=== PATIENT | male | born 1930 | race Caucasian/White ===

== ENCOUNTER → 2016-05-24 | Outpatient (CLI) | payer OTHER, BC | LOC: MMPC 11:11 | DX: R05 Cough (principal); J02.9 Acute pharyngitis, unspecified; R51 Headache; I10 Essential (primary) hypertension; G47.33 Obstructive sleep apnea (adult) (pediatric); N40.0 Benign prostatic hyperplasia without lower urinary tract symptoms; I49.8 Other specified cardiac arrhythmias; K40.90 Unilateral inguinal hernia, without obstruction or gangrene, not specified as recurrent | CPT/HCPCS: 99212; G0463 ==

== ENCOUNTER → 2016-07-11 | Outpatient (CLI) | payer OTHER, BC | LOC: MMPC 09:00 | DX: K21.9 Gastro-esophageal reflux disease without esophagitis (principal); G47.33 Obstructive sleep apnea (adult) (pediatric); I10 Essential (primary) hypertension; N40.0 Benign prostatic hyperplasia without lower urinary tract symptoms; K40.90 Unilateral inguinal hernia, without obstruction or gangrene, not specified as recurrent; I49.8 Other specified cardiac arrhythmias; L30.9 Dermatitis, unspecified | CPT/HCPCS: 99213; G0463 ==

== ENCOUNTER → 2016-11-08 | Outpatient (CLI) | payer OTHER, BC | LOC: MMPC 11:11 | DX: K21.9 Gastro-esophageal reflux disease without esophagitis (principal); G47.33 Obstructive sleep apnea (adult) (pediatric); I10 Essential (primary) hypertension; N40.0 Benign prostatic hyperplasia without lower urinary tract symptoms; K40.90 Unilateral inguinal hernia, without obstruction or gangrene, not specified as recurrent; I49.8 Other specified cardiac arrhythmias | CPT/HCPCS: 99213; G0463 ==

== ENCOUNTER 2017-07-19 14:33 | Observation (INO) ==
[2017-07-19] MEDS ORDERED: Sodium Chloride 0.9% 1,000 ML PRIMARY IV ONE (14:53)
[2017-07-19] MEDS ORDERED: ONDANSETRON 4 MG/2 ML VIAL IVP ONE (14:53)
[2017-07-19] MEDS ORDERED: MORPHINE SULFATE 2 MG/1 ML IVP ONE (14:53)
[2017-07-19] MEDS ORDERED: NORMAL SALINE 10 ML SYRINGE FLUSH IVP PRN ×3 (14:53→22:09)
[2017-07-19 14:59] LABS: BASOPHILS # (AUTO) 0.04 10*3/UL; BASOPHILS % (AUTO) 0.8 % (0-1); EOSINOPHILS # (AUTO) 0.07 10*3/UL; EOSINOPHILS % (AUTO) 1.3 % (0-8); Hemoglobin [HGB] 15.3 g/dL (14.0-18.0); LYMPHOCYTES # (AUTO) 1.55 10*3/uL; MEAN CORPUSCULAR HEMOGLOBIN 30.9 PG (27-31); MEAN CORPUSCULAR VOLUME 90.9 FL (80-90); MEAN PLATELET VOLUME 9.7 FL (7.4-12.2); MONOCYTES # (AUTO) 0.54 10*3/UL (0.3-0.8); MONOCYTES % (AUTO) 10.2 % (5-15); NEUTROPHILS # (AUTO) 3.07 10*3/UL; RED BLOOD COUNT 4.95 10^6/uL (4.70-6.10)
[2017-07-19 15:05] LABS: PLATELET MORPHOLOGY COMMENT NORMAL MORPHOLOGY (NORM); RBC MORPHOLOGY COMMENT NORMAL MORPHOLOGY (NORM); WBC MORPHOLOGY COMMENT NORMAL MORPHOLOGY (NORM)
[2017-07-19 15:12] LABS: BLOOD UREA NITROGEN 14 mg/dL (7-22); BUN/CREATININE RATIO 15.55 (6-20); LIPASE 32 IU/L (23-300); SERUM ALBUMIN 4.6 g/dL (3.5-4.8)
--- NOTE | 2017-07-19 16:47 | PDOC ---
Abdomen/Flank HPI - General Chief Complaint: Abdomen Pain Stated Complaint: RLQ ABDOMINAL PAIN Date Seen by Provider: 07/19/17 Time Seen by Provider: 15:00 Source: POSITIVE: Patient Exam Limitations: POSITIVE: No limitations Nurse's Notes Reviewed & Considered: Yes - History of Present Illness Initial Comments: The patient is an 87-year-old male who presents to the emergency department with pain in his right groin and lower abdomen. He states he has a known hernia in the right groin. He states that this morning he felt like he was constipated and did 2 enemas. After administration of enema the only result was passing of some gas and liquid. After administration of the enemas he developed significant increase in pain in the right groin associated with increased swelling in the area of the hernia. He states that normally when he lies down the hernia reduces however this was not the case this morning. He does have associated nausea and had an episode of emesis just prior to arrival here in the emergency department. He denies any fevers or chills, change in urinary symptoms or any other associated complaints. - Patient Home Medications Home Medications: Home Medications Aspirin [Aspir 81] 81 mg PO DAILY 07/10/15 Ibuprofen 1 tab PO TID PRN #60 tab 05/03/16 diltiazem CD 120 mg capsule,extended release 24 hr 120 mg PO QD #90 cap Terazosin HCl 10 mg PO BEDTIME 02/20/17 ergocalciferol (vitamin D2) 50,000 unit capsule 1 unit PO 2xw #16 unit 02/22/17 metoprolol tartrate 25 mg tablet 25 mg PO BID #180 tab 03/09/17 omeprazole 20 mg capsule,delayed release 20 mg PO QDAY #90 cap 03/09/17 diclofenac 1 % topical gel 2 g TOPICAL QID PRN #100 g 05/24/17 - Patient Allergies Allergies/Adverse Reactions: Allergies 3 Allergy/AdvReac Type Severity Reaction Status Date / Time No Known Allergies Allergy Verified 07/19/17 14:36 Past Medical History - heen HEENT History: Hard of Hearing, Deaf, Other (please comment) Additional HEENT History: WEARS HEARING AIDS AND GLASSES Cardiovascular History: Arrhythmia, Other (please comment) Additional Cardiovasular History: PT REPORTS "HIS HEART RACED ONCE BEFORE AND HE HAD TESTS DONE HERE TO MAKE SURE EVERYTHING WAS OKAY". 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 PT DENIES ANY OTHER CARDIAC HISTORY. Respiratory History: Snoring Gastrointestinal History: Other (please comment) Additional Gastrointestinal History: PT BELIEVES HIS RECURRENT CHEST/ STERNUM PAIN IS ESOPHAGEAL Genitourinary History: Other (please comment) Additional Genitourinary History: BPH ON FLOMAX Endocrine History: Denies History Musculoskeletal History: Arthritis, Back Pain Neurological History: Denies History Blood Disorders: Denies History Psychiatric History: Denies History Male Reproductive History: Denies History Cancer History: Denies History In Past Year Been Physically Harmed or Verbally Threatened: No History of MDRO: No Tobacco Use: Former Smoker Alcohol Use: Rarely In the Past 12 Months, Have Used or Abuse Any Substance: None Previous Surgical History: Yes Type / Date of Surgery: LEFT SHOULDER/ GALL BLADDER/ APPY/ HERNIA Anesthesia Reactions: No Malignant Hyperthermia: No Significant Family History: Other (please comment) Additional Family History: MOTHER, [place]. BROTHER HEART DISEASE Past Medical History Reviewed: Reviewed - No Changes ROS - Limitations ROS Limitations: No Limitations Constitution: DENIES: Chills, Fever Cardiovascular: REPORTS: Denies Cardiac Symptoms Respiratory: REPORTS: Denies Resp Symptoms Neurological: REPORTS: Denies Neuro Symptoms Abdominal/Flank Pain PE - General Appearance General Appearance: POSITIVE: Alert, Cooperative, No Acute Distress - HEENT HEENT: POSITIVE: Head Inspection Nml, Eyes Inspection Nml, Ears Inspection Nml, Pharynx Inspect. Nml - Neck Neck: POSITIVE: Normal Inspection. NEGATIVE: Lymphadenopathy - Respiratory Respiratory: POSITIVE: No Respiratory Distress, Breath Sounds Normal - Cardiovascular Cardiovascular: POSITIVE: Regular Rate and Rhythm, Heart Sounds Normal - Abdomen Additional Abdominal Details: His abdomen is soft, bowel sounds are present he does have some minimal tenderness in the right lower abdomen, he has a large right inguinal hernia which is firm, tender and not readily reducible on initial exam - Genital / Rectal Male Genital: POSITIVE: Other (Large right inguinal hernia which is tender, nonreducible) - Back Back: POSITIVE: Normal Inspection. NEGATIVE: CVA Tenderness (R), CVA Tenderness (L) - Skin Skin: POSITIVE: Intact, No Rash Abdomen Progress - Results Reviewed by me Xrays/CTs/US Reviewed by me: Yes Discussed with Radiologist: Yes Radiology Findings: CT scan of the abdomen and pelvis reveals a large right inguinal hernia containing a loop of sigmoid colon which also contains stool, no other acute findings per radiologist. CBC and BMP: 07/20/17 04:28 07/20/17 04:28 - Patient's Progress MDM / ED Course: The patient has a large right inguinal hernia which is currently not reducible on initial exam. I did discuss the patient with Dr. Yan and he recommended administering pain medication ice pack and then subsequent attempt at reduction. An IV was established and blood work was drawn. An icepack was applied for 15-20 minutes. The patient had received morphine and Zofran. I did attempt to reduce the inguinal hernia again however this was unsuccessful. CT scan of the abdomen and pelvis was ordered and reveals a large segment of the sigmoid colon herniated into the inguinal region on the right side, this portion of colon does contain stool. Dr. Yan was again subsequently consulted and he evaluated the patient here in the emergency department. He subsequently made arrangements to take the patient to the operating room for treatment. - Consult Counseled: POSITIVE: Patient, Family, RE: Lab Results, RE: Radiology Results, RE : DX Patient Care Time - Estimated PCT Patient Care Time (In Minutes): 30 Vital Signs - Recent Vital Signs Vital Signs: Vital Signs (Last 8 hours) Temp Pulse Resp BP Pulse Ox 07/19/17 14:57 98.1 F 85 16 157/92 94 - VS Reviewed Vital Signs Reviewed: Yes Discharge Clinical Impression: Incarcerated right inguinal hernia Discharge Disposition: Transferred to OR Condition: Fair
--- NOTE | 2017-07-19 16:53 | DI ---
CT ABDOMEN SCAN WITH IV CONTRAST, 07/19/2017 2:54 PM : Clinical History: Abdominal pain. Previous Exam: 04/15/2016. Scans are performed from the lower lung bases through the liver and kidneys with IV contrast. 75 ml o f Isovue 300 was injected IV. No oral or rectal contrast was ordered. The lung bases are clear. The liver is normal. The patient is status post cholecystectomy and the com mon bile duct measures 8-9 mm. There is no abnormality of the spleen, pancreas, and adrenal glands. B oth kidneys are normal in size, shape, position and contour. There is no hydronephrosis or hydrourete r. No renal or ureteral calculi are present. There are no abnormal retrocrural or periaortic nodes. N o ascites is present. READING: Normal CT abdomen scan. CT PELVIS SCAN WITH IV CONTRAST, 07/19/2017 2:54 PM: Clinical History: See above. Previous Exam: 04/15/2016. Scans are performed from just superior to the umbilicus to the symphysis pubis with IV contrast. This is the same bolus of contrast used for the CT scans of the abdomen. Scans through the lower abdomen and pelvis show no masses or abnormal fluid collections. There is no adenopathy. The appendix is not identified with certainty but there is no inflammatory mass either in the cecum or in the right lower quadrant. The small bowel, terminal ileum, and ileocecal valve are n ormal. The patient has a large right inguinal hernia through which the sigmoid colon has herniated al zuhair with mesenteric fat. There is no evidence of strangulation of this loop of bowel. There is marked enlargement of the prostate including the median lobe. READIN. There is a right-sided inguinal hernia with presence of a significant portion of the sigmoid colo n and mesenteric fat without evidence of strangulation or obstruction. 2. Marked prostatic enlargement.
[2017-07-19 16:54] LABS: BILIRUBIN,URINE NEGATIVE (NEG); CLARITY,URINE CLEAR (CLEAR); COLOR,URINE YELLOW (Y); GLUCOSE, URINE (UA) NEGATIVE (NEG); OCCULT BLOOD,URINE NEGATIVE (NEG); PROTEIN,URINE NEGATIVE (NEG); URINE SAMPLE TYPE CLEAN CATCH URINE; UROBILINOGEN,URINE 0.2 EU/dL (0.2)
[2017-07-19] MEDS ORDERED: Lactated Ringers 1,000 ML PRIMARY IV ONE ×3 (16:54→19:45)
[2017-07-19] MEDS ORDERED: Ertapenem Inj 1 GM in Sodium Chloride 0.9% 100 ML IV SCH (17:00)
[2017-07-19] MEDS ORDERED: SUFENTANIL 50 MCG/1 ML ONE (17:47)
[2017-07-19] MEDS ORDERED: MIDAZOLAM 5 MG/1 ML ONE (17:47)
[2017-07-19] MEDS ORDERED: PROPOFOL 10 MG/1 ML (200 MG/20 ML) VIAL IV ONE (17:48)
[2017-07-19] MEDS ORDERED: LIDOCAINE MPF 2% - 5 ML (20 MG/1 ML) ONE (17:48)
[2017-07-19] MEDS ORDERED: Sodium Chloride 0.9% vial 10 ML ONE (17:48)
[2017-07-19] MEDS ORDERED: BUPivacaine Liposome/PF (Exparel) Inj 20ml vial INFIL ONE (17:48)
[2017-07-19] MEDS ORDERED: ROCURONIUM 10 MG/1 ML - 5 ML VIAL IVP ONE ×2 (17:49→19:53)
--- NOTE | 2017-07-19 18:01 | CONSULT ---
Consult Note - Consult Consult Date: 07/19/17 Reason for Consult: PreOp Consulation : General Surgery Requesting Physician: Dr. Zuniga Primary Care Provider: Calos Stark MD - History of Present Illness History of Present Illness: Patient is an 87-year-old male who reports he awoke this morning and felt constipated. Had been constipated for a couple of days. He took a couple of enemas and it didn't work. He was straining at the stool and his chronic hernia became incarcerated. The patient has had a hernia for some time. About a year ago I recommended repair but he never did it. He usually can reduce his hernia but this morning he couldn't. He reports this happened at about 9:30. He has had several episodes of nausea and vomiting today. He presented to the emergency room. The emergency room doctor called me. We put some ice on the hernia and gave him some morphine. Neither the emergency room physician nor myself was able to reduce the hernia. A CT scan was done which showed his sigmoid colon, which is full of stool, is incarcerated in his right inguinal hernia. He will be taken to the operating room for reduction and repair of his hernia. The possibility of an exploratory laparotomy and colectomy with colostomy has been discussed with the patient and his family. On the CT was no evidence of bowel compromise. Patient does have a little difficulty voiding recently. It is not particularly painful unless someone presses on the hernia. Review of Systems - Gastrointestinal Gastrointestinal / Abdominal: REPORTS: Nausea, Vomiting, Constipation, Abdominal Pain (Right groin), See HPI Past Medical History Medical History: Obstructive sleep apnea. Known right inguinal hernia. Impingement syndrome of right shoulder. GERD. Hypertension. BPH. Paroxysmal supraventricular tachycardia. Transient atrial fibrillation/flutter. Surgical History: Shoulder surgery. Knee surgery. Inguinal hernia repair. Cholecystectomy. Appendectomy. Tobacco Use: Former Smoker In the Past 12 Months, Have Used or Abuse Any of the Following Substance: None Medication / Allergies Home Medications: Home Medications 3 Medication Instructions Recorded Confirmed Type Aspirin [Aspir 81] 81 mg PO DAILY 07/10/15 07/19/17 History Ibuprofen 1 tab PO TID PRN #60 tab 05/03/16 07/19/17 History diltiazem CD 120 mg 120 mg PO QD #90 cap 01/24/17 07/19/17 Rx capsule,extended release 24 hr Terazosin HCl 10 mg PO BEDTIME 02/20/17 07/19/17 History ergocalciferol (vitamin D2) 50,000 1 unit PO 2xw #16 unit 02/22/17 07/19/17 Rx unit capsule metoprolol tartrate 25 mg tablet 25 mg PO BID #180 tab 03/09/17 07/19/17 Rx omeprazole 20 mg capsule,delayed 20 mg PO QDAY #90 cap 03/09/17 07/19/17 Rx release diclofenac 1 % topical gel 2 g TOPICAL QID PRN #100 g 05/24/17 07/19/17 Rx Allergies/Adverse Reactions: Allergies 3 Allergy/AdvReac Type Severity Reaction Status Date / Time No Known Allergies Allergy Verified 07/19/17 14:36 Results - Labs CBC and BMP: 07/19/17 14:53 07/19/17 14:53 - Imaging Status: Image Reviewed by Me (And discussed with the radiologist.), Report Reviewed by Me Exam - Vitals Vital Signs: Vital Signs Temperature 98.1 F Temperature Source Temporal Artery Scan Pulse Rate [Pulse Oximeter 85 Bilateral Radial] Respiratory Rate 16 Blood Pressure [Left Arm] 157/92 Pulse Ox 94 Oxygen Delivery Method Room Air Height 5 ft 6 in Weight 192 lb - General General Appearance: No Acute Distress, Cooperative - Respiratory Respiratory Exam: POSITIVE: Clear to Auscultation - Bilaterally, Breathing Non Labored - Cardiovascular Cardiovascular Exam: POSITIVE: RRR, No Murmur - GI/Abdominal GI/Abdominal Exam: POSITIVE: Normal Bowel Sounds, Non Tender, Non Distended, Soft Additional GI/Abdominal Exam Details: Incarcerated and tender and nonreducible right inguinal hernia. - Rectal Rectal Exam: POSITIVE: Deferred - Neurological Neurological Exam: POSITIVE: Alert, Oriented x 3 - Psychiatric Psychiatric Exam: POSITIVE: Normal Affect, Normal Mood Assessment and Plan - Patient Problems (1) Incarcerated right inguinal hernia Current Visit: Yes Status: Acute Priority: High Onset Date: 07/19/17 Comment: The incarcerated contents are the stool-filled sigmoid colon. No evidence of bowel compromise. I am not able to reduce it. We will take patient to the operating room for reduction and repair of his right inguinal hernia. The possibility of an exploratory laparotomy with partial colectomy and colostomy has also been discussed. I think that is unlikely.The procedure has been discussed with the patient in complete yet simple terms including benefits, risks, and alternatives. All questions have been answered. Informed consent has been obtained. Code(s): K40.30 - Unilateral inguinal hernia, with obstruction, without gangrene , not specified as recurrent
[2017-07-19] MEDS: Lactated Ringers 1,000 ML PRIMARY IV SCH ×2 (18:15→22:59)
[2017-07-19] MEDS ORDERED: PHENYLEPHRINE 10,000 MCG/1 ML VIAL ONE (18:52)
[2017-07-19] MEDS ORDERED: ERTAPENEM 1 GM VIAL ONE (19:07)
[2017-07-19] MEDS ORDERED: Sodium Chloride 0.9% 0 ML IV ONE (19:07)
[2017-07-19] MEDS ORDERED: BUPivacaine Inj 0.5% PF (5mg/ml) 10ml vial ONE (19:40)
[2017-07-19] MEDS ORDERED: ePHEDrine Inj 50 MG/ML AMP ONE (20:05)
[2017-07-19] MEDS ORDERED: DEXAMETHASONE PF 10 MG/1 ML VIAL ONE (20:15)
[2017-07-19] MEDS ORDERED: GLYCOPYRROLATE 0.2 MG/1 ML VIAL ONE (20:31)
[2017-07-19] MEDS ORDERED: NEOSTIGMINE 1 MG/1 ML - 10 ML ONE (20:31)
--- NOTE | 2017-07-19 21:09 | GEN.OPNOTE ---
Operative Note Surgery Date: 07/19/17 Preoperative Diagnosis: Incarcerated right inguinal hernia. Postoperative Diagnosis: Incarcerated right inguinal hernia. Procedure: Reduction of incarcerated right inguinal hernia and repair in a tension-free fashion using Marlex mesh. Surgeon: Eduardo Yan MD Anesthesia Provider: Nilam Martinez CRNA Anesthesia Type: General Estimated Blood Loss (mL): 10 Fluids: 2600 mL of crystalloid. 1 g of IV Invanz at the start of the procedure. Pathology: No specimens. Indications: Incarcerated right inguinal hernia containing stool-filled sigmoid colon. Findings: Very large indirect right inguinal hernia, incarcerated. Complications: None. Operative Summary: Patient was taken to the operating room and placed on the operating table in the supine position. Following induction of adequate general anesthetic the right groin was prepped and draped in a sterile fashion. A surgical timeout was done. An incision was made over the groin and carried down through the subcutaneous tissue and Val's fascia to the external oblique. The external oblique was split along the course of its fibers laterally. The medial portion was completely obliterated from the large hernia. The external oblique was retracted. The cord was mobilized at the pubic tubercle and encircled with a [place] drain. The dissection was carried back to the internal ring. Nerves were identified and sacrificed. The floor was loose at the medial portion of the internal ring.. The indirect sac was dissected free from the cord structures. At this point in the procedure the contents spontaneously reduced. The hernia sac was quite large and quite thickened. I opted not to open it. The CT scan showed perfused bowel. The dissection was carried right down to the inferior epigastric vessels. All contents were reduced. The sac was inverted through the internal ring.. Make the floor was repaired with 2-0 Vicryl medial to the internal ring. A piece of Marlex mesh was cut to fit the floor. It was secured superiorly and medially from the pubic tubercle with 2-0 Prolene suture. A running continuous suture was used to anchor the mesh around the pubic tubercle and along the shelving portion of Poupart's ligament to well past the internal ring. The mesh was split. The tails were wrapped around the cord at the internal ring. The upper tail was secured to the shelving portion of Poupart ligament with 2-0 Prolene. Laterally the tails were tucked under the external oblique. The upper edge of the mesh was secured to the internal oblique fascia with 2-0 Vicryl sutures. The defect in the mesh where the cord passed through barely allowed the tip of my finger. Having completed the repair the cord structures were returned to a relative anatomic position. The wound was irrigated. Hemostasis was assured. The subcutaneous tissue was infiltrated with Exparel. The external oblique was closed with 2-0 Vicryl as much as possible. The Val 's fascia was closed with 2-0 Vicryl.. The skin was closed with running subcuticular 4-0 Prolene followed by Mastisol, Steri-Strips, and an appropriate dressing. The patient tolerated the entire procedure well without complication. He was taken to the recovery room in stable condition. All counts were correct. Patient Problems - Patient Problem List (1) Incarcerated right inguinal hernia Current Visit: Yes Status: Acute Onset Date: 07/19/17 Priority: High Code(s): K40.30 - Unilateral inguinal hernia, with obstruction, without gangrene , not specified as recurrent Category: Medical Procedure Codes - Surgical Procedures Primary Surgical Procedure: 07236 : Inguinal Hernia Strangulated, 5 yrs+
--- NOTE | 2017-07-19 21:13 | CRNA.PROGR ---
Anesthesia Time - - Start date: 07/19/17 End date: 07/19/17 - Procedure/Recovery Time Anesthesia : Time In: 18:41 Anesthesia : Time Out: 20:55 Anesthesia : Total Time: 134 - Total Anesthesia Time Total Anesthesia Time (minutes): 134 - Other Weight: 87.09 kg Height: 5 ft 6 in Body Mass Index (BMI): 30.9 Physical Status: P3 (Age 87, H/O Afib,) Anesthesia Type: General Anesthesia : ET
--- NOTE | 2017-07-19 21:13 | CRNA.PROGR ---
Post Anesthesia Phase II - Post Anesthesia Phase II Patient Stable and Discharged To: Med/Surg Care Assumed By Surgeon: Eduardo Yan MD Temperature: 96.8 F Pulse Rate: 80 Respiratory Rate: 10 Blood Pressure: 130/79 Pulse Ox: 94 Total Chip Score at Discharge: 9 Post Anesthesia Discharge Criteria Met: Yes
--- NOTE | 2017-07-19 21:13 | CRNA.PROGR ---
Anesthesia Recovery Phase I - Post Anesthesia Evaluation Patient's Condition on Arrival in Phase I: Stable Patient's Condition on Arrival in Phase II: Stable Pain Level: 2
[2017-07-19] MEDS ORDERED: ONDANSETRON 4 MG/2 ML VIAL IVP PRN (22:09)
[2017-07-19] MEDS ORDERED: MORPHINE SULFATE 2 MG/1 ML ONE (22:42)
[2017-07-19] MEDS: MORPHINE SULFATE 2 MG/1 ML IVP PRN (22:45)
[2017-07-19] MEDS ORDERED: Terazosin Cap 5 MG CAP PO ONE (23:06)
[2017-07-19] MEDS ORDERED: Metoprolol TARTRATE Tab 25 MG TAB PO ONE (23:06)
[2017-07-19] MEDS: Terazosin Cap 5 MG CAP PO SCH (23:09)
[2017-07-19] MEDS: Metoprolol TARTRATE Tab 50 MG TAB PO SCH (23:09)
[2017-07-20] MEDS: Lactated Ringers 1,000 ML PRIMARY IV SCH ×2 (01:46→18:27)
[2017-07-20] MEDS: HYDROcodone-APAP 5 MG -325 MG TABLET PO PRN ×3 (02:21→20:35)
[2017-07-20 04:38] LABS: BASOPHILS # (AUTO) 0.01 10*3/UL; BASOPHILS % (AUTO) 0.1 % (0-1); EOSINOPHILS # (AUTO) 0 10*3/UL; EOSINOPHILS % (AUTO) 0 % (0-8); Hematocrit [HCT] 42.7 % (42.0-52.0); Hemoglobin [HGB] 14.7 g/dL (14.0-18.0); LYMPHOCYTES # (AUTO) 0.51 10*3/uL; MEAN CORPUSCULAR HEMOGLOBIN 31.2 PG (27-31); MEAN CORPUSCULAR HGB CONC 34.4 g/dL (33-37); MEAN CORPUSCULAR VOLUME 90.7 FL (80-90); MEAN PLATELET VOLUME 9.8 FL (7.4-12.2); MONOCYTES % (AUTO) 2.7 % (5-15); NEUTROPHILS # (AUTO) 10.31 10*3/UL; NEUTROPHILS % (AUTO) 92.5 % (50-80); RED BLOOD COUNT 4.71 10^6/uL (4.70-6.10)
[2017-07-20 04:43] LABS: PLATELET MORPHOLOGY COMMENT NORMAL MORPHOLOGY (NORM); RBC MORPHOLOGY COMMENT NORMAL MORPHOLOGY (NORM); WBC MORPHOLOGY COMMENT NORMAL MORPHOLOGY (NORM)
[2017-07-20 04:47] LABS: BLOOD UREA NITROGEN 12 mg/dL (7-22); BUN/CREATININE RATIO 17.14 (6-20)
[2017-07-20] MEDS: MORPHINE SULFATE 2 MG/1 ML IVP PRN (05:33)
[2017-07-20] MEDS: PANTOPRAZOLE 40 MG TABLET PO SCH (06:55)
[2017-07-20] MEDS: Metoprolol TARTRATE Tab 50 MG TAB PO SCH ×2 (08:35→21:26)
[2017-07-20] MEDS: DILTIAZEM HCL CD 120 MG CAP PO SCH (08:35)
--- NOTE | 2017-07-20 11:36 | PDOC(PROG) ---
Subjective Post Op Day: 1 Pain Management: PO Hull Catheter: No Flatus: No Diet: Regular Ambulating: Yes Date and Time of Service: 07/20/2017 11:20 AM. Interval History: Overall doing well. He could not void overnight. Was catheterized for 650 mL of urine at about 6 AM. He has voided once since the catheter was removed.. He reports it burned. No flatus or bowel movement. Has ambulated. Tolerating a regular diet. Denies abdominal pain. He is a little sore at the operative site. Objective : Data - Labs CBC and BMP: 07/20/17 04:28 07/20/17 04:28 - Vital Signs Vital Signs and I&O: Vital Signs - Last Taken Temperature 98.2 F 07/20/17 06:58 Pulse Rate 92 07/20/17 06:58 Respiratory Rate 18 07/20/17 06:58 Blood Pressure 138/70 07/20/17 06:58 Pulse Ox 90 07/20/17 06:58 Intake and Output (24hr x 4 totals) 07/18/17 07/19/17 07/20/17 07/21/17 05:59 05:59 05:59 05:59 Intake Total 671 / 3271 240 / 240 Output Total 650 / 650 Balance 671 / 3261 -410 / -410 Objective : Exam - General General Appearance: No Acute Distress, Cooperative - Respiratory Respiratory Exam: Clear to Auscultation - Bilaterally, Breathing Non Labored - Cardiovascular Cardiovascular Exam: RRR, No Murmur - GI/Abdominal GI/Abdominal Exam: Normal Bowel Sounds, Non Tender, Non Distended, Soft Additional GI/Abdominal Exam Details: The dressing is clean, dry, and intact. There is some bruising in the scrotum and at the base of the penis. No significant swelling. Groin is soft. - Neurological Neurological Exam: Alert, Oriented x 3 - Psychiatric Psychiatric Exam: Normal Affect, Normal Mood Assessment and Plan - Patient Problems (1) Incarcerated right inguinal hernia Current Visit: Yes Status: Acute Priority: High Onset Date: 07/19/17 Comment: Status post surgical repair. Doing very well. The only issue is voiding. If he voids again will plan discharge home later today. Code(s): K40.30 - Unilateral inguinal hernia, with obstruction, without gangrene , not specified as recurrent
--- NOTE | 2017-07-20 11:39 | DCSUMMARY ---
Discharge Summary Admit Date: 07/19/17 Discharge Date: 07/20/17 Admitting Diagnosis: incarcerated right inguinal hernia. Discharge Diagnosis: Incarcerated right inguinal hernia, status post surgical repair Primary Surgery and Date: Reduction and repair of right inguinal hernia-2017 Hospital Course: Patient underwent herniorrhaphy for an incarcerated right inguinal hernia. His sigmoid colon was incarcerated in the right inguinal hernia. He is done well postop. The only issue is bleeding. He was straight cathetered about 6 AM for 650 mL. His voided a small amount since. He reports it burned. Otherwise he is quite stable. We will watch him for a few more hours. If he voids. He will be discharged home today. If not the staff will call the surgeon iron pellet tester, Dr. Bailey. Exam - Vitals Vital Signs: Vital Signs Temperature 98.2 F Temperature Source Temporal Artery Scan Pulse Rate [Pulse Oximeter 92 Bilateral Radial] Pulse Rate 80 Respiratory Rate 18 Blood Pressure [Right Arm] 138/70 Blood Pressure [Left Arm] 109/83 Blood Pressure 130/79 Pulse Ox 90 Oxygen Flow Rate 2 Oxygen Delivery Method Nasal Cannula Height 5 ft 6 in Weight 188 lb - General General Appearance: No Acute Distress, Cooperative - Respiratory Respiratory Exam: POSITIVE: Clear to Auscultation - Bilaterally, Breathing Non Labored - Cardiovascular Cardiovascular Exam: POSITIVE: RRR, No Murmur - GI/Abdominal GI/Abdominal Exam: POSITIVE: Normal Bowel Sounds, Non Tender, Non Distended, Soft Additional GI/Abdominal Exam Details: Some bruising in the groin. No significant swelling. Dressing is clean, dry and intact. Data Peritnent Studies: CT scan Procedures: Right inguinal herniorrhaphy Patient Problems - Patient Problem List (1) Incarcerated right inguinal hernia Current Visit: Yes Status: Acute Onset Date: 07/19/17 Priority: High Comment: Status post repair. Home later today after he voids. Discussed with the patient. Code(s): K40.30 - Unilateral inguinal hernia, with obstruction, without gangrene, not specified as recurrent Category: Medical
[2017-07-20] MEDS: DOCUSATE 100 MG CAPSULE PO SCH ×2 (12:33→20:35)
[2017-07-20] MEDS ORDERED: LIDOCAINE HCL 2 % 10 ML JELLY URO-JECT TOPICAL PRN (16:42)
[2017-07-20] MEDS: Terazosin Cap 5 MG CAP PO SCH (20:35)
[2017-07-20] MEDS ORDERED: TAMSULOSIN 0.4 MG CAPSULE PO SCH (21:00)
[2017-07-21] MEDS: HYDROcodone-APAP 5 MG -325 MG TABLET PO PRN ×3 (02:26→12:36)
[2017-07-21 04:38] VITALS: O2SAT 93
[2017-07-21] MEDS: PANTOPRAZOLE 40 MG TABLET PO SCH (07:37)
[2017-07-21 08:47] VITALS: BP 116/59; RESP 20; TEMP 97.4
[2017-07-21] MEDS: DOCUSATE 100 MG CAPSULE PO SCH (09:31)
[2017-07-21] MEDS: DILTIAZEM HCL CD 120 MG CAP PO SCH (09:31)
[2017-07-21] MEDS: Metoprolol TARTRATE Tab 50 MG TAB PO SCH (09:31)
--- NOTE | 2017-07-21 10:45 | DCSUMMARY ---
Discharge Summary Admit Date: 08/09/17 Discharge Date: 07/21/17 Admitting Diagnosis: incarcerated right inguinal hernia Discharge Diagnosis: Incarcerated right inguinal hernia. Urinary retention Primary Surgery and Date: Repair of incarcerated right inguinal hernia Hospital Course: Patient came in and underwent an repair of right incarcerated hernia. Patient had some urinary retention postoperatively. Needed a Hull catheter placed. He was started on Flomax to aid in getting urinary flow. Will try to remove the catheter see if he can urinate. Patient is unable to urinate on his own catheter replaced and then discharged Exam - Vitals Vital Signs: Vital Signs Temperature 97.4 F Temperature Source Temporal Artery Scan Pulse Rate [Pulse Oximeter 57 Bilateral Radial] Pulse Rate 80 Respiratory Rate 20 Blood Pressure [Right Arm] 116/59 Blood Pressure [Left Arm] 109/83 Blood Pressure 130/79 Pulse Ox 93 Oxygen Flow Rate 2 Oxygen Delivery Method Room Air Height 5 ft 6 in Weight 198 lb 12.8 oz - General General Appearance: No Acute Distress, Cooperative - GI/Abdominal GI/Abdominal Exam: POSITIVE: Non Tender, Non Distended Additional GI/Abdominal Exam Details: Dressings are dry. Patient Problems - Patient Problem List (1) Incarcerated right inguinal hernia Current Visit: Yes Status: Acute Onset Date: 07/19/17 Priority: High Comment: Status post repair. Home later today after he voids. Discussed with the patient. Code(s): K40.30 - Unilateral inguinal hernia, with obstruction, without gangrene, not specified as recurrent Category: Medical (2) Urinary retention Current Visit: Yes Status: Acute Code(s): R33.9 - Retention of urine, unspecified Category: Medical
== END 2017-07-21 12:58 | disposition home or self-care (01) ==
LOC: ER 14:33 → OPS 16:54 → OR 16:54 → MED/SURG 21:59
PROVIDERS: ADMIT Surgery; ATTEND Surgery

== ENCOUNTER 2018-09-05 17:51 | Inpatient (IN) ==
--- NOTE | 2018-09-05 18:10 | EKG ---
[address] [address] Measurements Intervals [place] Rate: 147 P: LA: 0 QRS: -37 QRSD: 84 T: 262 QT: 199 QTc: 283 Interpretive Statements ATRIAL FIBRILLATION WITH RAPID VENTRICULAR RESPONSE MARKED LEFT AXIS DEVIATION [QRS AXIS < -30] LOW QRS VOLTAGE IN PRECORDIAL LEADS [QRS DEFLECTION < 1.0 mV IN CHEST LEADS] PATTERN CONSISTENT WITH PULMONARY DISEASE ST DEVIATION AND MODERATE T-WAVE ABNORMALITY, CONSIDER INFERIOR ISCHEMIA [-0.1+ mV T WAVE IN II/aVF] WARNING: DATA QUALITY MAY AFFECT INTERPRETATION Compared to ECG 02/20/2017 08:56:48 Low QRS voltage now present T-wave abnormality now present Possible ischemia now present Sinus rhythm no longer present First degree AV block no longer present Electronically Signed On 09-06-18 08:44:58 MDT by Orlando Anderson MD [id number]
[2018-09-05] MEDS ORDERED: ASPIRIN 81 MG (BABY) CHEWABLE TABLET PO ONE (18:12)
[2018-09-05] MEDS ORDERED: DILTIAZEM 5 MG/ML - 5 ML IV ONE (18:13)
[2018-09-05 18:20] LABS: Hematocrit [HCT] 46.1 % (42.0-52.0); Hemoglobin [HGB] 15.8 g/dL (14.0-18.0); MEAN CORPUSCULAR HEMOGLOBIN 31.3 PG (27-31); MEAN CORPUSCULAR HGB CONC 34.3 g/dL (33-37); MEAN CORPUSCULAR VOLUME 91.5 FL (80-90); MEAN PLATELET VOLUME 9.9 FL (7.4-12.2); RED BLOOD COUNT 5.04 10^6/uL (4.70-6.10)
[2018-09-05 18:25] LABS: BLOOD UREA NITROGEN 17 mg/dL (7-22); BUN/CREATININE RATIO 18.88 (6-20); LIPASE 42 IU/L (23-300); SERUM ALBUMIN 4.5 g/dL (3.5-4.8)
[2018-09-05 18:40] LABS: PLATELET MORPHOLOGY COMMENT NORMAL MORPHOLOGY (NORM); RBC MORPHOLOGY COMMENT NORMAL MORPHOLOGY (NORM); WBC MORPHOLOGY COMMENT NORMAL MORPHOLOGY (NORM)
[2018-09-05 18:41] LABS: BAND NEUTROPHILS % 0 % (0-10); BASOPHILS % (MANUAL) 2 % (0-1); EOSINOPHILS % (MANUAL) 0 % (0-8); METAMYELOCYTES % 0 %; MONOCYTES % (MANUAL) 7 % (0-12); MYELOCYTES % 0 %; NEUTROPHILS % (MANUAL) 52 % (50-80); PROMYELOCYTES % 0 %
--- NOTE | 2018-09-05 19:26 | EKG ---
[address] [place] [address] Measurements Intervals [place] Rate: 67 P: 30 [place]: 255 QRS: -45 QRSD: 104 T: 0 QT: 394 QTc: 410 Interpretive Statements SINUS RHYTHM WITH FIRST DEGREE AV BLOCK LOW QRS VOLTAGE IN PRECORDIAL LEADS [QRS DEFLECTION < 1.0 mV IN CHEST LEADS] PATTERN CONSISTENT WITH PULMONARY DISEASE LEFT ANTERIOR FASCICULAR BLOCK [QRS AXIS <= -45, QR IN I, RS IN II] Compared to ECG 09/05/2018 18:00:45 First degree AV block now present Left anterior fascicular block now present Atrial fibrillation no longer present Left-axis deviation no longer present T-wave abnormality no longer present Possible ischemia no longer present Electronically Signed On 09-06-18 08:46:09 MDT by Orlando Anderson MD [id number]
--- NOTE | 2018-09-05 19:26 | DI ---
AP CHEST X-RAY, 09/05/2018 6:12 PM : Clinical History: Chest pain. Previous Exam: 07/10/2015. Soft Tissues: No acute soft tissue abnormality. Bones: Normal. Heart: Normal heart. Lungs: No infiltrates. Effusion(s): None. Mediastinum: The right hilum is difficult to assess, but it does appear prominent. When the patient h as recovered from his acute medical situation, a followup PA and lateral chest x-ray is recommended f or assessment of the right hilum. Nodules: No pulmonary nodules. Readin. No acute infiltrate or effusion. 2. The right hilum does appear prominent but the overlying aortic silhouette obscures much of the de tail. When the patient has recovered from this acute medical complaint, then a followup PA and latera l chest x-ray is recommended to reassess the right hilum.
[2018-09-05] MEDS ORDERED: Diltiazem Drip 125 MG in Sodium Chloride 0.9% 100 ML IV ONE (21:00)
--- NOTE | 2018-09-05 21:05 | PDOC ---
HPI - History of Present Illness History of Present Illness: Patient now was here for blood pressure check respiratory therapist evaluated him and found him to be with a heart rate of 160 patient was sent to the ER for A. fib RVR was given IV Cardizem patient converted for now and will be admitted to the ICU on Cardizem drip and by mouth Cardizem. Troponin remains negative. Past Medical History Medical History: Obstructive sleep apnea. Known right inguinal hernia. Impinge ment syndrome of right shoulder. GERD. Hypertension. BPH. Paroxysmal supraventricular tachycardia. Transient atrial fibrillation/flutter. Surgical History: Shoulder surgery. Knee surgery. Inguinal hernia repair. Cholecystectomy. Appendectomy. Tobacco Use: Former Smoker In the Past 12 Months, Have Used or Abuse Any of the Following Substance: None Medication / Allergies Home Medications: Home Medications Medication Instructions Recorded Confirmed Type Aspirin [Aspir 81] 81 mg PO DAILY 07/10/15 09/05/18 History Ibuprofen 1 tab PO TID PRN #60 tab 05/03/16 09/05/18 History diltiazem CD 120 mg 120 mg PO QD #90 cap 01/16/18 09/05/18 Rx capsule,extended release 24 hr omeprazole 20 mg capsule,delayed 20 mg PO QDAY #90 cap 03/28/18 09/05/18 Rx release finasteride 5 mg tablet 5 mg PO QDAY #90 tab 04/05/18 09/05/18 Rx metoprolol tartrate 25 mg tablet 25 mg PO BID #180 tab 04/17/18 09/05/18 Rx tamsulosin 0.4 mg capsule 0.4 mg PO QDAY #90 cap 04/18/18 09/05/18 Rx erythromycin with ethanol 2 % 1 applic TOPICAL BID PRN #60 g 05/31/18 09/05/18 Rx topical gel triamcinolone acetonide 0.1 % 1 applic TOPICAL BID PRN #30 g 05/31/18 09/05/18 Rx topical cream diclofenac 1 % topical gel 4 g TOPICAL QID PRN #300 g 08/05/18 09/05/18 Rx Allergies/Adverse Reactions: Allergies Allergy/AdvReac Type Severity Reaction Status Date / Time No Known Allergies Allergy Verified 09/05/18 18:32 Exam - Vitals Vital Signs: Vital Signs Temperature 97.1 F Temperature Source Temporal Artery Scan Pulse Rate [Pulse Oximeter 164 Right] Respiratory Rate 20 Blood Pressure [Right Arm] 159/143 Pulse Ox 99 Oxygen Delivery Method Room Air Height 5 ft 6 in Weight 180 lb - General General Appearance: No Acute Distress, Cooperative - Respiratory Respiratory Exam: POSITIVE: Clear to Auscultation - Bilaterally, Breathing Non Labored, Normal To Percussion, Normal to Percussion and Palpation - Cardiovascular Cardiovascular Exam: POSITIVE: Irregular Rhythm - GI/Abdominal GI/Abdominal Exam: POSITIVE: Normal Bowel Sounds, Non Tender, Non Distended, Soft, No Masses, No Hepatomegaly, No Splenomegaly, No Organomegaly - Extremities Extremities Exam: POSITIVE: No Clubbing Present, No Edema Present, No Cyanosis Present Results - Labs CBC and BMP: 09/05/18 18:12 09/05/18 17:58 Assessment and Plan - Patient Problems (1) Atrial fibrillation with RVR Current Visit: Yes Status: Acute Comment: Patient will be admitted to the ICU with Cardizem drip will also given by mouth Cardizem hopefully will stay converted also start on liquids 5 mg by mouth twice a day for stroke prophylaxis IV fluids Code(s): I48.91 - Unspecified atrial fibrillation (2) BPH (benign prostatic hyperplasia) Current Visit: No Status: Acute Onset Date: 02/24/14 Comment: Continue finasteride Code(s): N40.0 - Benign prostatic hyperplasia without lower urinary tract symptoms Qualifiers: (3) Benign essential hypertension Current Visit: No Status: Acute Onset Date: 04/03/13 Comment: Stable Code(s): I10 - Essential (primary) hypertension (4) Obstructive sleep apnea syndrome Current Visit: No Status: Acute Onset Date: 04/03/13 Code(s): G47.33 - Obs tructive sleep apnea (adult) (pediatric)
--- NOTE | 2018-09-05 21:35 | PDOC ---
General Adult HPI - General Chief Complaint: Palpitations Stated Complaint: elevated heart rate Date Seen by Provider: 09/05/18 Time Seen by Provider: 18:00 Source: POSITIVE: Patient Exam Limitations: POSITIVE: No limitations Nurse's Notes Reviewed & Considered: Yes - History of Present Illness Initial Comment: The patient is a 88-year-old male. Patient presents to the emergency room because this afternoon he had episodes of "feeling dizzy "and he states that his "heart doesn't seem". He states he has a history of "a lot of gas and heartburn" and he states he does take sodium bicarbonate for this problem. He states that his "heartburn" has become more frequent in the 2 or 3 days. He describes the pain as beginning in the epigastric and subxiphoid area and radiating up towards his throat. He states that these episodes last from 30 minutes to 2 hours and he has had 2 episodes today. His last episode occurred just prior to coming to the emergency room and states it lasted about 30 minutes. Patient states that he has a history of atrial fibrillation for which he takes diltiazem CD, 120 mg daily and metoprolol, 25 mg twice daily. He is not on any anticoagulants. No syncope. No dyspnea. Have you received a tetanus shot in the past 10 years?: Yes Body Location Affected: REPORTS: Chest Timing: REPORTS: Intermittent Duration: >24 hours Severity: Moderate Quality: REPORTS: "Pain" ("Heartburn" beginning in epigastric and subxiphoid area and radiating superiorly) Context: REPORTS: None Modifying Factors: improves with: Nothing Associated Symptoms: "Feeling dizzy "and rapid heart rate. Similar Symptoms Previously: Yes Recent Care Received: REPORTS: Denies Any Prior Injuries Related to Current Complaint?: No - Patient Home Medications Home Medications: Home Medications Aspirin [Aspir 81] 81 mg PO DAILY 07/10/15 Ibuprofen 1 tab PO TID PRN #60 tab 05/03/16 diltiazem CD 120 mg capsule,extended release 24 hr 120 mg PO QD #90 cap 01/16/18 omeprazole 20 mg capsule,delayed release 20 mg PO QDAY #90 cap 03/28/18 finasteride 5 mg tablet 5 mg PO QDAY #90 tab 04/05/18 metoprolol tartrate 25 mg tablet 25 mg PO BID #180 tab 04/17/18 tamsulosin 0.4 mg capsule 0.4 mg PO QDAY #90 cap 04/18/18 erythromycin with ethanol 2 % topical gel 1 applic TOPICAL BID PRN #60 g 05/31/18 triamcinolone acetonide 0.1 % topical cream 1 applic TOPICAL BID PRN #30 g 05/31/18 diclofenac 1 % topical gel 4 g TOPICAL QID PRN #300 g 08/05/18 - Patient Allergies Allergies/Adverse Reactions: Allergies Allergy/AdvReac Type Severity Reaction Status Date / Time No Known Allergies Allergy Verified 09/05/18 18:32 Past Medical History - heen HEENT History: Hard of Hearing, Deaf, Other (please comment) Additional HEENT History: WEARS HEARING AIDS AND GLASSES Cardiovascular History: Arrhythmia, Other (please comment) Additional Cardiovasular History: PT REPORTS "HIS HEART RACED ONCE BEFORE AND HE HAD TESTS DONE HERE TO MAKE SURE EVERYTHING WAS OKAY". 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 PT DENIES ANY OTHER CARDIAC HISTORY. Respiratory History: Snoring Gastrointestinal History: Other (please comment) Additional Gastrointestinal History: PT BELIEVES HIS RECURRENT CHEST/ STERNUM PAIN IS ESOPHAGEAL Genitourinary History: Other (please comment) Additional Genitourinary History: BPH ON FLOMAX Endocrine History: Denies History Musculoskeletal History: Arthritis, Back Pain Prosthesis or Implant: No Neurological History: Denies History Blood Disorders: Denies History Psychiatric History: Denies History History of Sexually Transmitted Diseases: No Male Reproductive History: BPH Cancer History: Denies History In Past Year Been Physically Harmed or Verbally Threatened: No History of MDRO: No History of Other Communicable Diseases: No Tobacco Use: Former Smoker Alcohol Use: Rarely In the Past 12 Months, Have Used or Abuse Any Substance: None Previous Surgical History: Yes Type / Date of Surgery: LEFT SHOULDER/ GALL BLADDER/ APPY/ HERNIA Anesthesia Reactions: No Malignant Hyperthermia: No Significant Family History: Other (please comment) Additional Family History: MOTHER, [place]. BROTHER HEART DISEASE Past Medical History Reviewed: Reviewed - No Changes ROS - Limitations ROS Limitations: No Limitations Constitution: REPORTS: Denies Symptoms Cardiovascular: REPORTS: Chest Pain, Heart Racing, Heart Palpitations Respiratory: REPORTS: Denies Resp Symptoms Neurological: REPORTS: Denies Neuro Symptoms Gastrointestinal: REPORTS: Other ("Heartburn and gas") Endocrine: REPORTS: Denies Symptoms Musculoskeletal: REPORTS: Denies MS Symptoms Genitourinary: REPORTS: Denies Symptoms Eyes: REPORTS: Denies Symptoms ENT: REPORTS: Denies Symptoms Skin: REPORTS: Denies Skin Symptoms Lympathic: REPORTS: Denies Lympathic Symptoms Immunologic: POSITIVE: Denies Symptoms Psychiatric: POSITIVE: Denies Psych Symptoms General Adult Exam - General Appearance General Appearance: POSITIVE: Alert, Cooperative, No Acute Distress, No Evidence of Trauma - HEENT HEENT: POSITIVE: Head Inspection Nml, Eyes Inspection Nml, Ears Inspection Nml, Nose Inspection Nml, Oral/Dental Inspect. Nml, Pharynx Inspect. Nml, PERRL, EOMI - Pupils Pupil Size: 3 mm: Bilateral (PERRLA) - Neck Neck: POSITIVE: Normal Inspection, Thyroid Normal - Respiratory Respiratory: POSITIVE: No Respiratory Distress, Breath Sounds Normal, Chest Non- Tender - Cardiovascular Cardiovascular: POSITIVE: No Murmur, No Gallop, PMI Normal, Irregularly Irreg. Rhythm, Tachycardia. NEGATIVE: Regular Rate & Rhythm (Atrial fibrillation with a rapid ventricular response of around 147 265), Decreased Pulse, No Pulse, Occasional Extrasystoles, Frequent Extrasystoles, PMI Displaced Laterally, JVD Present, Murmur, S3 Gallop, S4 Gallop, Bradycardia, Friction Rub Peripheral Pulses: Radial (R): 2+, Radial (L): 2+ - Abdomen Abdomen: Soft: (All Quadrants), Normal Bowel Sounds: (All Quadrants), Denies Tenderness: (All Quadrants), No Splenomegaly: (All Quadrants), No Hepatomegaly: (All Quadrants), No Guarding: (All Quadrants), No Rebound: (All Quadrants), No Palpable Pulse: (All Quadrants), No Palpabale Mass: (All Quadrants), No Distention: (All Quadrants), No Rigidity: (All Quadrants) - Back Back: POSITIVE: Normal Inspection - Skin Skin: POSITIVE: Normal Color, Warm, Dry, No Rash - Extremities Extremity: Non-Tender: (All Extremities), Normal ROM: (All Extremities), Normal Inspection: (All Extremities) - Neurological / Psychological Neurological: POSITIVE: 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, 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 As Tested, Motor Normal, Sensation Normal, 5, 6 Images - Complete Complete: 1 - Area of described discomfort General Adult Progress - Results Reviewed by me Xrays/CTs/US Reviewed by me: Yes Discussed with Radiologist: Yes Radiology Findings: Chest x-ray read as normal by radiologist Lab Results Reviewed by Me: Yes Lab Results:: Laboratory Results 09/05/18 09/05/18 09/05/18 17:58 17:58 17:58 WBC RBC Hgb Hct MCV MCH MCHC RDW Std Deviation RDW Coeff of Alfredo Plt Count MPV Neutrophils % (Manual) Band Neutrophils % Lymphocytes % (Manual) Monocytes % (Manual) Eosinophils % (Manual) Basophils % (Manual) Metamyelocytes % Myelocytes % Promyelocytes % Blast Cells WBC Morphology Comment Plt Morphology Comment RBC Morph Comment D-Dimer Sodium 140 Potassium 3.7 L Chloride 102 Carbon Dioxide 29 Anion Gap 9 BUN 17 Creatinine 0.9 BUN/Creatinine Ratio 18.88 Glucose 112 H Calculated Osmolality 292.0 Calcium 9.0 Total Bilirubin 0.5 AST 31 ALT 6 L Alkaline Phosphatase 112 CK-MB (CK-2) 1.53 Troponin I < 0.012 NT-Pro-B Natriuret Pep 108 Total Protein 7.8 Albumin 4.5 Globulin 3.3 Albumin/Globulin Ratio 1.30 Amylase 81 Lipase 42 09/05/18 09/05/18 18:12 18:12 WBC 7.29 RBC 5.04 Hgb 15.8 Hct 46.1 MCV 91.5 H MCH 31.3 H MCHC 34.3 RDW Std Deviation 41.9 RDW Coeff of Alfredo 12.7 Plt Count 248 MPV 9.9 Neutrophils % (Manual) 52 Band Neutrophils % 0 Lymphocytes % (Manual) 39 Monocytes % (Manual) 7 Eosinophils % (Manual) 0 Basophils % (Manual) 2 H Metamyelocytes % 0 Myelocytes % 0 Promyelocytes % 0 Blast Cells 0 WBC Morphology Comment Normal morphology Plt Morphology Comment Normal morphology RBC Morph Comment Normal morphology D-Dimer 0.37 Sodium Potassium Chloride Carbon Dioxide Anion Gap BUN Creatinine BUN/Creatinine Ratio Glucose Calculated Osmolality Calcium Total Bilirubin AST ALT Alkaline Phosphatase CK-MB (CK-2) Troponin I NT-Pro-B Natriuret Pep Total Protein Albumin Globulin Albumin/Globulin Ratio Amylase Lipase CBC and BMP: 09/05/18 18:12 09/05/18 17:58 EKG Interpreted/Reviewed By Me:: Yes (atrial fibrillation with rapid ventricular response) EKG Interpretation:: POSITIVE: Normal Intervals, Normal QRS, Normal ST/T, Abnormal EKG (Atrial fibrillation with rapid ventricular response), Repeat EKG (Repeat electrocardiogram after conversion to normal sinus rhythm after IV diltiazem, 0.25 mg/kg shows normal sinus rhythm and is felt to be essentially normal). NEGATIVE: Normal Sinus Rhythm, Normal Rate, Normal [place] - Patient's Progress Pain Medication Addressed: POSITIVE: Not Applicable School/Work Release Addressed: POSITIVE: Not Applicable Re-Examine Time: 20:30 Re-Examine Comment: Results of laboratory studies, electrocardiograms and chest x-ray discussed with patient. Patient feels much better after conversion to normal sinus rhythm. I have some concern that the patient's described "heartburn" radiating in his chest might be angina. Options of treatment discussed with patient and patient is admitted by hospitalist for further evaluation and treatment. Status: POSITIVE: Improved, Re-Examined Antibiotics Given: No Quality Measure Initiative: CP/AMI: POSITIVE: EKG, ASA - Consult Consult (If Yes, Name of Consulting MD & Time Called): Yes (Dr. Overton, hospitalist, 2029) Consulting MD will see pt:: POSITIVE: [facility] [place] Admit Counseled: POSITIVE: Patient, Family, RE: Lab Results, RE: Radiology Results, RE: DX, RE: Need for F/U Patient Care Time - Estimated PCT Patient Care Time (In Minutes): 50 Vital Signs - Recent Vital Signs Vital Signs: Vital Signs (Last 8 hours) Temp Pulse Resp BP Pulse Ox 09/05/18 17:51 97.1 F 164 H 20 159/143 99 - VS Reviewed Vital Signs Reviewed: Yes Discharge Clinical Impression: Atrial fibrillation, Chest pain Discharge Disposition: Admit to Inpatient Condition: Fair Date Decision to Admit to Inpatient: 09/05/18 Time Decision to Admit to Inpatient: 20:15
[2018-09-05] MEDS ORDERED: LIDOCAINE W/ SODIUM BICARB 0.5 ML SYR SUBD PRN (21:55)
[2018-09-05] MEDS: PANTOPRAZOLE IV 40 MG VIAL IVP SCH (22:55)
[2018-09-05] MEDS: Apixaban 5 MG TABLET PO SCH (22:56)
[2018-09-05] MEDS: Lactated Ringers 1,000 ML PRIMARY IV SCH (22:56)
[2018-09-05] MEDS: Metoprolol TARTRATE Tab 25 MG TAB PO SCH (22:56)
[2018-09-05] MEDS: FINASTERIDE 5 MG TABLET PO SCH (22:56)
[2018-09-06 04:51] LABS: BASOPHILS # (AUTO) 0.05 10*3/UL; BASOPHILS % (AUTO) 0.8 % (0-1); EOSINOPHILS # (AUTO) 0.15 10*3/UL; EOSINOPHILS % (AUTO) 2.4 % (0-8); Hematocrit [HCT] 41.2 % (42.0-52.0); Hemoglobin [HGB] 13.7 g/dL (14.0-18.0); LYMPHOCYTES # (AUTO) 2.27 10*3/uL; MEAN CORPUSCULAR HEMOGLOBIN 30.7 PG (27-31); MEAN CORPUSCULAR HGB CONC 33.3 g/dL (33-37); MEAN CORPUSCULAR VOLUME 92.4 FL (80-90); MEAN PLATELET VOLUME 9.9 FL (7.4-12.2); MONOCYTES % (AUTO) 8.1 % (5-15); NEUTROPHILS % (AUTO) 51.7 % (50-80); RED BLOOD COUNT 4.46 10^6/uL (4.70-6.10)
[2018-09-06 04:55] LABS: BLOOD UREA NITROGEN 15 mg/dL (7-22); BUN/CREATININE RATIO 16.66 (6-20); PLATELET MORPHOLOGY COMMENT NORMAL MORPHOLOGY (NORM); RBC MORPHOLOGY COMMENT NORMAL MORPHOLOGY (NORM); SERUM ALBUMIN 3.5 g/dL (3.5-4.8); WBC MORPHOLOGY COMMENT NORMAL MORPHOLOGY (NORM)
[2018-09-06] MEDS ORDERED: ACETAMINOPHEN 500 MG TABLET PO PRN ×2 (06:16→12:25)
[2018-09-06] MEDS ORDERED: ACETAMINOPHEN 500 MG TABLET PO ONE (06:30)
[2018-09-06] MEDS: Lactated Ringers 1,000 ML PRIMARY IV SCH (07:04)
[2018-09-06] MEDS: PANTOPRAZOLE IV 40 MG VIAL IVP SCH (08:50)
[2018-09-06] MEDS: Apixaban 5 MG TABLET PO SCH ×2 (08:52→20:55)
[2018-09-06] MEDS: Metoprolol TARTRATE Tab 25 MG TAB PO SCH ×2 (08:52→20:55)
[2018-09-06] MEDS ORDERED: TAMSULOSIN 0.4 MG CAPSULE PO SCH (09:00)
[2018-09-06] MEDS ORDERED: FINASTERIDE 5 MG TABLET PO SCH (09:00)
[2018-09-06] MEDS: FINASTERIDE 5 MG TABLET PO SCH (09:00)
[2018-09-06] MEDS ORDERED: DILTIAZEM HCL CD 120 MG CAP PO SCH (09:00)
[2018-09-06] MEDS ORDERED: ASPIRIN EC 81 MG TABLET PO SCH (09:00)
[2018-09-06] MEDS ORDERED: LIDOCAINE W/ SODIUM BICARB 0.5 ML SYR SUBD PRN (12:25)
--- NOTE | 2018-09-06 16:31 | PDOC(PROG) ---
Date of Service: 09/06/18 Time of Service: 16:25 Interval History: patient seen, evaluated earlier today. discussed with and RN and patient at bedside. patient without SOB, nausea or vomiting complains of chest burning, not responding to baking soda as of late. prilosec on home medications. on protonix here. spicy foods do make it worse but patient also states it comes on at random times too. someone had told him it could be his heart. Objective : Data - Labs CBC and BMP: 09/06/18 04:12 09/06/18 04:12 Additional Lab Results: 09/05/18 09/05/18 09/05/18 17:58 17:58 18:12 D-Dimer 0.37 Troponin I < 0.012 Amylase 81 Lipase 42 09/05/18 09/06/18 22:30 04:12 D-Dimer Troponin I 0.014 0.018 Amylase Lipase Objective : Exam - General General Appearance: No Acute Distress, Cooperative Additional General Exam Details: Vital Signs - Last Taken Temperature 97.6 F 09/06/18 04:00 Pulse Rate 72 09/06/18 10:56 Respiratory Rate 14 09/06/18 10:56 Blood Pressure 149/85 09/06/18 10:56 Pulse Ox 97 09/06/18 10:00 patient converted to NSR with rate control with cardizem overnight. - Eye Eye Exam: No Scleral Icterus - ENT ENT Exam: Mucous Membranes Moist - Neck Neck Exam: JVP is not Raised - Respiratory Respiratory Exam: Clear to Auscultation - Bilaterally, Breathing Non Labored - Cardiovascular Cardiovascular Exam: RRR, No Murmur, No Clicks, No Gallops, No Rubs, No JVD - GI/Abdominal GI/Abdominal Exam: Normal Bowel Sounds, Non Tender, Non Distended, Soft - Extremities Extremities Exam: No Clubbing Present, No Edema Present, No Cyanosis Present - Neurological Neurological Exam: Alert, Oriented x 3, No Facial Droop, Speech Intact / Clear, Moves All Extremities Equally Assessment and Plan - Patient Problems (1) Chest pain Current Visit: Yes Status: Acute Code(s): R07.9 - Chest pain, unspecified Qualifiers: Chest pain type: precordial pain Qualified Code(s): R07.2 - Precordial pain (2) Atrial fibrillation with RVR Current Visit: Yes Status: Acute Code(s): I48.91 - Unspecified atrial fibrillation (3) BPH (benign prostatic hyperplasia) Current Visit: Yes Status: Acute Onset Date: 02/24/14 Code(s): N40.0 - Benign prostatic hyperplasia without lower urinary tract symptoms Qualifiers: Lower urinary tract symptom presence: symptoms present Lower urinary tract symptom detail: urinary frequency Qualified Code(s): N40.1 - Benign prostatic hyperplasia with lower urinary tract symptoms; R35.0 - Frequency of micturition (4) Benign essential hypertension Current Visit: Yes Status: Acute Onset Date: 04/03/13 Code(s): I10 - Essential (primary) hypertension (5) Obstructive sleep apnea syndrome Current Visit: Yes Status: Chronic Onset Date: 04/03/13 Code(s): G47.33 - Obstructive sleep apnea (adult) (pediatric) - Assessment / Plan Additional Assessment/Plan Details: patient can transfer out of ICU, troponins show no evidence for UT stress test for patient, though I suspect chest pain is GERD/acid reflux related, protonix IV for now--increase blood levels. then to PO and may need surgery f ollow up for EGD if symptoms persist lipid panel in AM is already on home meds of Beta [facility] and cardizem, continue no other apparent reason for RVR clinically ECHO today, pending results discussed with patient, , RN--all agree with the plan.
[2018-09-06 16:51] LABS: BILIRUBIN,URINE NEGATIVE (NEG); CLARITY,URINE CLEAR (CLEAR); COLOR,URINE YELLOW (Y); GLUCOSE, URINE (UA) NEGATIVE (NEG); OCCULT BLOOD,URINE Trace-intact (NEG); PH,URINE 8.5 (5.0-8.5); PROTEIN,URINE NEGATIVE (NEG)
[2018-09-06 16:58] LABS: RBC,URINE 0-1 /hpf; URINE SAMPLE TYPE CLEAN CATCH URINE; WBC,URINE 0-1
[2018-09-07 05:21] LABS: CHOL/HDL RATIO 4.85 RATIO (0-4.0)
--- NOTE | 2018-09-07 09:52 | STRESSTEST ---
[facility] [place] This is an 88 YO with afib with RVR, HTN, no DM, does not smoke, no family history of CAD that I am aware of, cholesterol is okay, has had chest pain, non specific. ruled out for RI. Lexiscan stress test with rest portion yesterday. Resting EKG is NSR. during test, occasional PVC, also prolonged QT interval that resolved with caffeine. had knot in stomach, resolved. Plan: stress images today, radiology to review images, risk stratification based on results. [email or web address]
[2018-09-07] MEDS: ASPIRIN EC 81 MG TABLET PO SCH (13:30)
[2018-09-07] MEDS: PANTOPRAZOLE IV 40 MG VIAL IVP SCH (13:30)
[2018-09-07] MEDS: Apixaban 5 MG TABLET PO SCH ×2 (13:30→21:00)
[2018-09-07] MEDS: FINASTERIDE 5 MG TABLET PO SCH (13:30)
[2018-09-07] MEDS: DILTIAZEM HCL CD 120 MG CAP PO SCH (13:31)
[2018-09-07] MEDS: Metoprolol TARTRATE Tab 25 MG TAB PO SCH ×2 (13:31→21:00)
[2018-09-07] MEDS: TAMSULOSIN 0.4 MG CAPSULE PO SCH (13:31)
--- NOTE | 2018-09-07 14:06 | DI ---
2 DAY LEXISCAN STRESS & REST MYOCARDIAL PERFUSION SCANS, 09/06/2018-09/07/2018: Clinical History: Chest pain. Atrial fibrillation with rapid ventricular rate. Previous Exam: None at this facility. Monitoring Physician: Dr. Chris Estrada. Dose: Stress dose: 38 mCi on 09/07/2018. Rest dose: 37 mCi on 09/06/2018. Quantitative Analysis: linkedü program without and with low dose limited CT chest scan attenuati on correction. Exam Quality: Excellent. Rejected Beats: Stress = 1%; Rest = 0%. HR: Stress = 63-70 b/m; Rest = 76-8 0 b/m. Left Ventricular Chamber Sizes: Normal at stress and rest. Transient Ischemic Dilatation Ratio: 1.23. Normal [place]once TID <= 1.22; normal Lexiscan TID <= 1.33. LVEF: Stress: 79%. Rest: 83%. Myocardial Perfusion: Non-attenuated and attenuated corrected scans show no statistically significant stress or resting defects. Myocardial Wall Motion: Normal at stress and rest. Myocardial Thickening: Normal at stress and rest. Coronary Artery Calcifications: Faint calcifications are seen in the proximal half of the LAD and pro ximal portion of the left circumflex artery. Lungs: No lung nodules or enlarged nodes. Readin. Normal stress and rest left ventricular chamber size. Transient ischemic dilatation ratio is norm al at 1.23. 2. Normal stress and rest LVEF values of 79%, and 83%, respectively. 3. Normal stress and rest myocardial perfusion, wall motion, and thickening. 4. Minimal calcifications present in the proximal half of the LAD and the proximal portion of the le ft circumflex artery.
--- NOTE | 2018-09-07 19:06 | PDOC(PROG) ---
Date of Service: 09/07/18 Time of Service: 19:01 Interval History: patient seen, evaluated twice earlier today. no chest pain today. heart burn persists no nausea or vomiting. no shortness of breath. we got stress test back, and it is negative for reversible defect. Objective : Data - Labs CBC and BMP: 09/06/18 04:12 09/06/18 04:12 Objective : Exam - General General Appearance: No Acute Distress, Cooperative Additional General Exam Details: Vital Signs - Last Taken Temperature 97.9 F 09/07/18 16:36 Pulse Rate 59 L 09/07/18 16:36 Respiratory Rate 20 09/07/18 16:36 Blood Pressure 122/94 09/07/18 16:36 Pulse Ox 92 09/07/18 16:36 - Eye Eye Exam: No Scleral Icterus - ENT ENT Exam: Mucous Membranes Moist - Neck Neck Exam: JVP is not Raised - Respiratory Respiratory Exam: Clear to Auscultation - Bilaterally, Breathing Non Labored - Cardiovascular Cardiovascular Exam: RRR, No Murmur, No Clicks, No Gallops, No Rubs, No JVD - GI/Abdominal GI/Abdominal Exam: Normal Bowel Sounds, Non Tender, Non Distended, Soft - Extremities Extremities Exam: No Clubbing Present, No Edema Present, No Cyanosis Present - Neurological Neurological Exam: Alert, Oriented x 3, No Facial Droop, Speech Intact / Clear, Moves All Extremities Equally Assessment and Plan - Patient Problems (1) GERD (gastroesophageal reflux disease) Current Visit: Yes Status: Acute Code(s): K21.9 - Gastro-esophageal reflux disease without esophagitis Qualifiers: Esophagitis presence: esophagitis presence not specified Qualified Code(s): K21.9 - Gastro-esophageal reflux disease without esophagitis (2) Atrial fibrillation with RVR Current Visit: Yes Status: Acute Code(s): I48.91 - Unspecified atrial fibrillation (3) BPH (benign prostatic hyperplasia) Current Visit: Yes Status: Acute Onset Date: 02/24/14 Code(s): N40.0 - Benign prostatic hyperplasia without lower urinary tract symptoms Qualifiers: Lower urinary tract symptom presence: symptoms present Lower urinary tract symptom detail: urinary frequency Qualified Code(s): N40.1 - Benign prostatic hyperplasia with lower urinary tract symptoms; R35.0 - Frequency of micturition (4) Benign essential hypertension Current Visit: Yes Status: Acute Onset Date: 04/03/13 Code(s): I10 - Essential (primary) hypertension (5) Obstructive sleep apnea syndrome Current Visit: Yes Status: Chronic Onset Date: 04/03/13 Code(s): G47.33 - Obstructive sleep apnea (adult) (pediatric) (6) Chest pain Current Visit: Yes Status: Resolved Code(s): R07.9 - Chest pain, unspecified Qualifiers: Chest pain type: precordial pain Qualified Code(s): R07.2 - Precordial pain - Assessment / Plan Additional Assessment/Plan Details: will continue cardizem for afib no adjustment in medications for afib for CVA prevention given very young children at his home, concerns for radiation, I will keep patient overnight and discharge tomorrow. will check TSH and free T4. all this is based on very high rate on admission, thus far no other causes of tachycardia or stimuli for RVR noted, but need to check thyroid function. ECHO done, pending results
[2018-09-08 03:52] VITALS: RESP 20
[2018-09-08] MEDS: Apixaban 5 MG TABLET PO SCH (09:33)
[2018-09-08] MEDS: ASPIRIN EC 81 MG TABLET PO SCH (09:33)
[2018-09-08] MEDS: PANTOPRAZOLE IV 40 MG VIAL IVP SCH (09:34)
[2018-09-08] MEDS: Metoprolol TARTRATE Tab 25 MG TAB PO SCH (09:34)
[2018-09-08] MEDS: TAMSULOSIN 0.4 MG CAPSULE PO SCH (09:34)
[2018-09-08] MEDS: FINASTERIDE 5 MG TABLET PO SCH (09:34)
[2018-09-08] MEDS: DILTIAZEM HCL CD 120 MG CAP PO SCH (09:34)
[2018-09-08 10:37] VITALS: BP 134/89; TEMP 97.9; O2SAT 95
--- NOTE | 2018-09-08 12:55 | DCSUMMARY ---
Hospitalization Summary Admit Date: 09/05/2018 Discharge Date: 09/08/18 Primary Diagnosis:: ventricular tachycardia, symptomatic. Secondary Diagnosis:: atrial fibrillation with rapid ventricular response. Hospital Course: This is a very pleasant 88 YO that was admitted 09/05/2018, with atrial fibrillation with rapid ventricular response. He was placed on a cardizem drip and electrolytes were found to be normal. No evidence of infection. The patient spontaneously converted to NSR with rate control. He was placed back on his beta charity and cardizem by mouth. The patient detailed a heartburn like sensation in his chest and dizziness that were intermittently coming on, sometimes with food and sometimes without. No response with proton pump inhibitor. Stress test was done and it was negative for reversible defects. It was discovered by the RN this morning that the patient was having these symptoms, no relation to food. The patient was noted to be in ventricular tachycardia, it was more than 3 beats, and it eventually resolved along with the patient's symptoms of chest pain, heartburn like symptoms, and dizziness. He denied any lightheadedness. He states that this is exactly like his symptoms have been in the past. Given these findings, I discussed with Dr. Partida and he agreed to accept the patient. I do not know where the workup and go from here, but I definitely think with normal electrolytes, and ventricular tachycardia, the patient may need to be evaluated further with cardiology for further recommendations. I greatly appreciate his assistance with the patient today. Assessment and Plan: 1. As per discharge assessments noted 2. Disposition: Patient is discharged to [facility] 3. Condition on discharge, stable and improved. 4. Diet: regular diet 5. Activities: As per physician's at [facility] 6. Follow-Up: 1. Dr. Stark one week post discharge from hospital [place] [address]. 7. Medications at the Time of Discharge: Home Medications Medication Instructions Recorded Confirmed Type Aspirin [Aspir 81] 81 mg PO DAILY 07/10/15 09/05/18 History Ibuprofen 1 tab PO TID PRN #60 tab 05/03/16 09/05/18 History diltiazem CD 120 mg 120 mg PO QD #90 cap 01/16/18 09/05/18 Rx capsule,extended release 24 hr omeprazole 20 mg capsule,delayed 20 mg PO QDAY #90 cap 03/28/18 09/05/18 Rx release finasteride 5 mg tablet 5 mg PO QDAY #90 tab 04/05/18 09/05/18 Rx metoprolol tartrate 25 mg tablet 25 mg PO BID #180 tab 04/17/18 09/05/18 Rx tamsulosin 0.4 mg capsule 0.4 mg PO QDAY #90 cap 04/18/18 09/05/18 Rx erythromycin with ethanol 2 % 1 applic TOPICAL BID PRN #60 g 05/31/18 09/05/18 Rx topical gel triamcinolone acetonide 0.1 % 1 applic TOPICAL BID PRN #30 g 05/31/18 09/05/18 Rx topical cream diclofenac 1 % topical gel 4 g TOPICAL QID PRN #300 g 08/05/18 09/05/18 Rx 8. Time, care, counseling and coordination of care for this discharge is greater than 30 minutes. Exam - Vitals Vital Signs: Vital Signs Temperature 97.9 F Temperature Source Oral Pulse Rate [Left Apical] 83 Pulse Rate [Telemetry] 64 Pulse Rate [Pulse Oximeter 77 Right] Pulse Rate 65 Respiratory Rate 20 Blood Pressure [Right Arm] 149/85 Blood Pressure 134/89 Pulse Ox 95 Oxygen Flow Rate q Oxygen Delivery Method Room Air Height 5 ft 6 in Weight 192 lb 6.4 oz - General General Appearance: No Acute Distress, Cooperative - Eye Eye Exam: POSITIVE: No Scleral Icterus - ENT ENT Exam: POSITIVE: Mucous Membranes Moist - Neck Neck Exam: JVP is not Raised - Respiratory Respiratory Exam: POSITIVE: Clear to Auscultation - Bilaterally, Breathing Non Labored - Cardiovascular Cardiovascular Exam: POSITIVE: RRR, No Murmur, No Clicks, No Gallops, No Rubs, No JVD - GI/Abdominal GI/Abdominal Exam: POSITIVE: Normal Bowel Sounds, Non Tender, Non Distended, Soft - Extremities Extremities Exam: POSITIVE: No Clubbing Present, No Edema Present, No Cyanosis Present - Neurological Neurological Exam: POSITIVE: Alert, Oriented x 3, No Facial Droop, Speech Intact / Clear, Moves All Extremities Equally - Psychiatric Psychiatric Exam: POSITIVE: Normal Affect, Normal Mood Data Peritnent Studies: 09/06/18 09/06/18 09/06/18 04:12 04:12 04:12 WBC 6.19 Hgb 13.7 L Hct 41.2 L Plt Count 231 Sodium 138 Potassium 3.8 Chloride 106 Carbon Dioxide 27 Anion Gap 5 BUN 15 Creatinine 0.9 BUN/Creatinine Ratio 16.66 Glucose 114 H Calculated Osmolality 287.0 Calcium 8.8 Magnesium Total Bilirubin 0.5 AST 17 L ALT 15 L Alkaline Phosphatase 88 Troponin I 0.018 Total Protein 6.3 Albumin 3.5 Albumin/Globulin Ratio 1.20 L Triglycerides Cholesterol LDL Cholesterol, Calc VLDL Cholesterol HDL Cholesterol Cholesterol/HDL Ratio TSH Free T4 Ur Culture Indicated? 09/06/18 09/07/18 09/08/18 13:00 04:48 04:50 WBC Hgb Hct Plt Count Sodium Potassium Chloride Carbon Dioxide Anion Gap BUN Creatinine BUN/Creatinine Ratio Glucose Calculated Osmolality Calcium Magnesium Total Bilirubin AST ALT Alkaline Phosphatase Troponin I Total Protein Albumin Albumin/Globulin Ratio Triglycerides 128 Cholesterol 136 LDL Cholesterol, Calc 82.400 VLDL Cholesterol 25 HDL Cholesterol 28 L Cholesterol/HDL Ratio 4.85 H TSH 4.94 H Free T4 1.23 Ur Culture Indicated? Culture not set 09/08/18 10:11 WBC Hgb Hct Plt Count Sodium Potassium Chloride Carbon Dioxide Anion Gap BUN Creatinine BUN/Creatinine Ratio Glucose Calculated Osmolality Calcium Magnesium 2.3 Total Bilirubin AST ALT Alkaline Phosphatase Troponin I Total Protein Albumin Albumin/Globulin Ratio Triglycerides Cholesterol LDL Cholesterol, Calc VLDL Cholesterol HDL Cholesterol Cholesterol/HDL Ratio TSH Free T4 Ur Culture Indicated? Procedures: [address] [facility] [place] [id number] PH: DD: [phone] FAX: [phone] ~DIAGNOSTIC IMAGING REPORT~ - Patient: Oskar Mendez : 1930 Sex: M Age: 88 Exam Name: SD Myocardial Multi-Spect Exam Date: 09/06/18 Report # : [id number] CPT Code: 25827 EMR/MR #: [id number] Ordering: MARICEL ARTEAGA Admiting: ASHWIN ANAND MD. Primary: Calos Stark MD Attending: MARICEL ARTEAGA, DO Signed 2 DAY LEXISCAN STRESS & REST MYOCARDIAL PERFUSION SCANS, 09/06/2018-09/07/2018: Clinical History: Chest pain. Atrial fibrillation with rapid ventricular rate. Previous Exam: None at this facility. Monitoring Physician: Dr. Maricel Arteaga. Dose: Stress dose: 38 mCi on 09/07/2018. Rest dose: 37 mCi on 09/06/2018. Quantitative Analysis: Proactive Comfort program without and with low dose limited CT chest scan attenuation correction. Exam Quality: Excellent. Rejected Beats: Stress = 1%; Rest = 0%. HR: Stress = 63-70 b/m; Rest = 76-80 b/m. Left Ventricular Chamber Sizes: Normal at stress and rest. Transient Ischemic Dilatation Ratio: 1.23. Normal Ponce TID <= 1.22; normal Lexiscan TID <= 1.33. LVEF: Stress: 79%. Rest: 83%. Myocardial Perfusion: Non-attenuated and attenuated corrected scans show no statistically significant stress or resting defects. Myocardial Wall Motion: Normal at stress and rest. Myocardial Thickening: Normal at stress and rest. Coronary Artery Calcifications: Faint calcifications are seen in the proximal half of the LAD and proximal portion of the left circumflex artery. Lungs: No lung nodules or enlarged nodes. Readin. Normal stress and rest left ventricular chamber size. Transient ischemic dilatation ratio is normal at 1.23. 2. Normal stress and rest LVEF values of 79%, and 83%, respectively. 3. Normal stress and rest myocardial perfusion, wall motion, and thickening. 4. Minimal calcifications present in the proximal half of the LAD and the proximal portion of the left circumflex artery. Dictated By: 09/07/18 1348 BRANDO MORELAND MD. Signed By: 09/07/18 1403 BRANDO MORELAND MD. [address] [facility] [place] [address] PH: DD: [phone] FAX: [phone] ~DIAGNOSTIC IMAGING REPORT~ Patient: Oskar Mendez : 1930 Sex: M Age: 88 Exam Name: XR CXR 1VW Exam Date: 09/05/18 Report # : [id number] CPT Code: 72931 EMR/MR #: [id number] Ordering: ARSENIO GUNDERSON Admiting: Primary: Calos Stark MD Attending: Signed AP CHEST X-RAY, 09/05/2018 6:12 PM : Clinical History: Chest pain. Previous Exam: 07/10/2015. Soft Tissues: No acute soft tissue abnormality. Bones: Normal. Heart: Normal heart. Lungs: No infiltrates. Effusion(s): None. Mediastinum: The right hilum is difficult to assess, but it does appear prominent. When the patient has recovered from his acute medical situation, a followup PA and lateral chest x-ray is recommended for assessment of the right hilum. Nodules: No pulmonary nodules. Readin. No acute infiltrate or effusion. 2. The right hilum does appear prominent but the overlying aortic silhouette obscures much of the detail. When the patient has recovered from this acute medical complaint, then a followup PA and lateral chest x-ray is recommended to reassess the right hilum. Dictated By: 09/05/181919 BRANDO MORELAND MD. Signed By: 09/05/181925 BRANDO MORELAND MD. Patient Problems - Patient Problem List (1) Ventricular tachyarrhythmia Current Visit: Yes Status: Acute Code(s): I47.2 - Ventricular tachycardia Category: Medical (2) GERD (gastroesophageal reflux disease) Current Visit: Yes Status: Acute Code(s): K21.9 - Gastro-esophageal reflux disease without esophagitis Qualifiers: Esophagitis presence: esophagitis presence not specified Qualified Code(s): K21.9 - Gastro-esophageal reflux disease without esophagitis Category: Medical (3) Atrial fibrillation with RVR Current Visit: Yes Status: Acute Code(s): I48.91 - Unspecified atrial fibrillation Category: Medical (4) BPH (benign prostatic hyperplasia) Current Visit: Yes Status: Acute Onset Date: 02/24/14 Code(s): N40.0 - Benign prostatic hyperplasia without lower urinary tract symptoms Qualifiers: Lower urinary tract symptom presence: symptoms present Lower urinary tract symptom detail: urinary frequency Qualified Code(s): N40.1 - Benign prostatic hyperplasia with lower urinary tract symptoms; R35.0 - Frequency of micturition Category: Medical (5) Benign essential hypertension Current Visit: Yes Status: Acute Onset Date: 04/03/13 Code(s): I10 - Essential (primary) hypertension Category: Medical (6) Obstructive sleep apnea syndrome Current Visit: Yes Status: Chronic Onset Date: 04/03/13 Code(s): G47.33 - Obstructive sleep apnea (adult) (pediatric) Category: Medical (7) Chest pain Current Visit: Yes Status: Resolved Code(s): R07.9 - Chest pain, unspecified Qualifiers: Chest pain type: precordial pain Qualified Code(s): R07.2 - Precordial pain Category: Medical
== END 2018-09-08 14:51 | disposition short-term general hospital (02) | DRG 310 ==
LOC: ER 17:51 → ICU 21:28 → MED/SURG 09-06 11:02
PROVIDERS: ADMIT Internal Medicine; ATTEND Family Medicine